=== PATIENT | male | born 1955 | race Caucasian/White ===

== ENCOUNTER 2021-09-21 10:44 | Outpatient (CLI) | payer OTHER | END 2021-09-21 10:46 | disposition home or self-care (01) | LOC: RAD 10:44 | DX: M99.01 Segmental and somatic dysfunction of cervical region (principal); M99.02 Segmental and somatic dysfunction of thoracic region; M99.03 Segmental and somatic dysfunction of lumbar region; M99.04 Segmental and somatic dysfunction of sacral region ==

== ENCOUNTER 2022-08-03 10:47 | Outpatient (CLI) | payer OTHER | END 2022-08-03 10:57 | disposition home or self-care (01) | LOC: RAD 10:47 | DX: Z01.811 Encounter for preprocedural respiratory examination (principal) ==